=== PATIENT | female | born 1965 | race Caucasian/White ===

== ENCOUNTER 2017-09-08 12:03 | Emergency (ER) | payer MEDICARE ==
[2017-09-08] MEDS ORDERED: Aspirin 81 MG Tab.Chew PO ONE (12:19)
[2017-09-08] MEDS ORDERED: Ketorolac 30 MG/ML SDV IM ONE (12:25)
--- NOTE | 2017-09-08 12:25 | EDM.PDOC ---
ED HPI GENERAL MEDICAL PROBLEM - General Chief Complaint: Chest Pain Stated Complaint: [id number] CHEST PAIN Time Seen by Provider: 09/08/17 12:20 Source of Information: Reports: Patient History Limitations: Reports: No Limitations - History of Present Illness INITIAL COMMENTS - FREE TEXT/NARRATIVE: Patient comes emergency department today with complaints of sharp shooting stabbing intermittent left-sided chest pain that started this morning. She did not wake with this pain. The pain on the left side of her chest is around her breast and under her armpit gets worse with deep breath cough movement or palpation. She has not had a cough over the past couple of days. No congestion. No wheezing. She does smoke anywhere from a half to one pack of cigarettes a day. She has not had any shortness of breath or diaphoresis. No nausea no vomiting. No abdominal pain. No weakness dizziness lightheadedness. No palpitations. No fever no chills. She has not tried anything for the pain. Right Chest Pain Score (Numeric/FACES): 9 - Related Data Allergies Allergy/AdvReac Type Severity Reaction Status Date / Time No Known Allergies Allergy Verified 09/08/17 12:10 Home Meds: Home Meds ARIPiprazole [Aripiprazole] 5 mg PO DAILY 09/08/17 [History] [place] Carbonate 300 mg PO DAILY 09/08/17 [History] QUEtiapine Fumarate [Quetiapine Fumarate] 1,500 mg PO DAILY 09/08/17 [History] Zolpidem [Ambien] 5 mg PO DAILY 09/08/17 [History] traMADol HCl [Tramadol HCl] 50 mg PO BID 09/08/17 [History] Past Medical History Psychiatric History: Reports: Other (See Below) Other Psychiatric History: insomnia Social & Family History - Tobacco Use Smoking Status *Q: Current Every Day Smoker Years of Tobacco use: 20 Packs/Tins Daily: 0.5 - Caffeine Use Caffeine Use: Reports: Coffee - Recreational Drug Use Recreational Drug Use: No ED ROS GENERAL - Review of Systems Review Of Systems: See Below (ROS is difficult to obtain as the patient answers the questions with responses even since she was a child.) ED EXAM, GENERAL - Physical Exam Exam: See Below Exam Limited By: No Limitations General Appearance: Alert, WD/WN, No Apparent Distress Nose: Normal Inspection Throat/Mouth: Normal Inspection, Normal Lips Head: Atraumatic, Normocephalic Neck: Normal Inspection, Supple, Non-Tender Respiratory/Chest: No Respiratory Distress, No Accessory Muscle Use, Crackles ( Fine inspiratory bibasilar crackles without wheezing or rhonchi. ). No: Chest Non-Tender (Chest to the left anterior chest without bruising swelling ecchymosis. ) Cardiovascular: Normal Peripheral Pulses, Regular Rate, Rhythm, No Edema, No JVD GI/Abdominal: Normal Bowel Sounds, Soft, Non-Tender (Female) Exam: Deferred Rectal (Female) Exam: Deferred Back Exam: Normal Inspection, Full Range of Motion Extremities: Normal Inspection, Normal Range of Motion, Normal Capillary Refill Neurological: Alert, Oriented, CN II-XII Intact, Normal Reflexes Psychiatric: Normal Affect, Normal Mood Skin Exam: Warm, Dry, Intact, Normal Color, No Rash Lymphatic: No Adenopathy EKG INTERPRETATION EKG Date: 09/08/17 Time: 12:11 Rhythm: NSR Rate (Beats/Min): 83 [place]: Normal P-Wave: Present QRS: Other (incomplete RBBB) ST-T: Normal QT: Normal Course - Vital Signs Last Recorded V/S: Last Vital Signs Temp 36.7 C 09/08/17 12:16 Pulse 77 09/08/17 13:10 Resp 18 09/08/17 13:10 BP 122/84 09/08/17 13:10 Pulse Ox 99 09/08/17 13:10 - Orders/Labs/Meds Orders: Active Orders 24 hr Category Date Time Status EKG Documentation Completion [RC] STAT Care 09/08/17 12:18 Active Labs: Laboratory Tests 09/08/17 09/08/17 09/08/17 Range/Units 12:27 12:27 12:27 WBC 7.2 (5.0-10.0) 10^3/uL RBC 3.76 L (4.2-5.4) 10^6/uL Hgb 11.4 L (12.0-16.0) g/dL Hct 34.9 L (37.0-47.0) % MCV 92.8 (80-100) fL MCH 30.3 (27.0-34.0) pg MCHC 32.7 L (33.0-35.0) g/dL Plt Count 381 (150-450) 10^3/uL Neut % (Auto) 73.3 (42.2-75.2) % Lymph % (Auto) 17.7 L (20.5-50.1) % [place] % (Auto) 5.8 (2-8) % Eos % (Auto) 2.8 (1.0-3.0) % Baso % (Auto) 0.4 (0.0-1.0) % Sodium 136 (135-145) mmol/L Potassium 4.6 (3.6-5.0) mmol/L Chloride 103 (101-111) mmol/L Carbon Dioxide 27.0 (21.0-31.0) mmol/L Anion Gap 10.6 BUN 11 (7-18) mg/dL Creatinine 1.2 (0.6-1.3) mg/dL Est Cr Clr Drug Dosing 44.48 mL/min Estimated GFR (MDRD) 47 BUN/Creatinine Ratio 9.16 Glucose 89 (74-105) mg/dL Calcium 8.9 (8.4-10.2) mg/dl Total Bilirubin 0.4 (0.2-1.0) mg/dL AST 24 (10-42) IU/L ALT 16 (10-60) IU/L Alkaline Phosphatase 67 (42-121) IU/L Troponin I < 0.02 (0.00-0.02) ng/ml Total Protein 6.5 L (6.7-8.2) g/dl Albumin 3.8 (3.2-5.5) g/dl Globulin 2.7 Albumin/Globulin Ratio 1.41 Meds: Medications Discontinued Medications Generic Name Dose Route Start Last Admin Trade Name Jeremy PRN Reason Stop Dose Admin Aspirin 324 mg 09/08/17 12:19 09/08/17 12:27 Aspirin PO 09/08/17 12:20 324 mg ONETIME ONE Administration Ketorolac Tromethamine 30 mg 09/08/17 12:25 09/08/17 12:39 Toradol IM 09/08/17 12:26 30 mg ONETIME ONE Administration Orphenadrine Citrate 60 mg 09/08/17 12:26 09/08/17 12:39 Norflex IM 09/08/17 12:27 60 mg NOW STA Administration - Radiology Interpretation Free Text/Narrative:: Chest x-ray reviewed extemporaneously by myself with no hemopneumothorax infiltrate or consolidation. Minimal flattening of the bilateral diaphragms with extension concerning for COPD disease. Narrow mediastinum. Radiological review to follow. - Re-Assessments/Exams Free Text/Narrative Re-Assessment/Exam: 09/08/17 12:32 Ketorolac 30mg IM Norflex 60mg IM Aspirin 324mg PO chew. 09/08/17 13:15 Her pain her pain has improved after the above therapy. Her laboratory evaluation to include her EKG and chest x-ray is unremarkable. This is really presentation a musculoskeletal type chest wall pain. We will use a course of nonsteroidals for management at home. She does have tramadol plus many other chronic medications at home that she can use for pain as well. Departure - Departure Time of Disposition: 13:15 Disposition: Home, Self-Care 01 Clinical Impression: Left-sided chest wall pain Instructions: Chest Wall Pain, [id number], Nonspecific Chest Pain, Easy-to- Read Forms: ED Department Discharge Additional Instructions: Aleve 2 tablets twice daily for the next 3 days, then as needed. Consider quitting smoking or cutting down. Return to the ED if new or worsening symptoms Recheck primary care provider in the next 4-6 days if not improving sooner if worse. - My Orders Last 24 Hours: My Active Orders 09/08/17 12:18 EKG Documentation Completion [RC] STAT - Assessment/Plan Last 24 Hours: My Active Orders 09/08/17 12:18 EKG Documentation Completion [RC] STAT Assessment:: Chest wall pain. Plan: Aleve 2 tablets twice daily for the next 3 days, then as needed. Consider quitting smoking or cutting down. Return to the ED if new or worsening symptoms Recheck primary care provider in the next 4-6 days if not improving sooner if worse.
[2017-09-08 12:53] LABS: ANION GAP 10.6
--- NOTE | 2017-09-11 07:47 | EKG ---
09/08/2017- ASHLEE VASQUEZ R - EKG per my reading, shows sinus rhythm at the rate of 83. MODL /[id number]
== END 2017-09-08 13:29 | disposition home or self-care (01) ==
LOC: DL.ED 12:03
DX: R07.89 Other chest pain (principal); F17.210 Nicotine dependence, cigarettes, uncomplicated; Z79.899 Other long term (current) drug therapy
CPT/HCPCS: 36415; 71046; 80053; 84484; 85025; 93005; 93010; 96372; 99285; A9270; J1885; J2360

== ENCOUNTER 2022-11-13 10:50 | Emergency (ER) | payer MEDICARE, SELFPAY ==
[2022-11-13] MEDS ORDERED: predniSONE 20 MG Tab PO ONE (12:27)
== END 2022-11-13 12:46 | disposition home or self-care (01) ==
LOC: DL.ED 10:50
DX: M54.42 Lumbago with sciatica, left side (principal); F17.210 Nicotine dependence, cigarettes, uncomplicated; W18.30XA Fall on same level, unspecified, initial encounter; Y93.01 Activity, walking, marching and hiking
CPT/HCPCS: 99283; J7512

== ENCOUNTER 2024-05-24 20:56 | Emergency (ER) | payer MEDICARE ==
[2024-05-24] MEDS: Ziprasidone Mesylate 20 MG Vial IM ONE (21:01)
[2024-05-24 21:22] LABS: APPEARANCE,URINE CLEAR (CLEAR); BILIRUBIN,URINE NEGATIVE (NEGATIVE); COLOR,URINE YELLOW (YELLOW); GLUCOSE,URINE NEGATIVE (NEGATIVE); KETONES,URINE NEGATIVE (NEGATIVE); LEUKOCYTE ESTERASE,URINE NEGATIVE (NEGATIVE); NITRITE,URINE NEGATIVE (NEGATIVE); OCCULT BLOOD,URINE NEGATIVE (NEGATIVE); PH,URINE 7.5 (5.0-9.0); PROTEIN,URINE NEGATIVE (NEGATIVE); UROBILINOGEN,URINE 0.2 mg/dL (0.2-1.0)
[2024-05-24 21:26] LABS: AMPHETAMINES,URINE NEGATIVE (NEGATIVE); BARBITURATES,URINE NEGATIVE (NEGATIVE); BENZODIAZEPINE,URINE POSITIVE (NEGATIVE); MDMA (ECSTASY), URINE NEGATIVE (NEGATIVE); METHADONE,URINE NEGATIVE (NEGATIVE); METHAMPHETAMINES,URINE NEGATIVE (NEGATIVE); OPIATES,URINE NEGATIVE (NEGATIVE); OXYCODONE,URINE NEGATIVE (NEGATIVE); PHENCYCLIDINE,URINE NEGATIVE (NEGATIVE); TCA,URINE NEGATIVE (NEGATIVE)
[2024-05-24 21:41] LABS: BASOPHILS PERCENT AUTO 0.3 % (0.0-1.0); EOSINOPHILS PERCENT AUTO 0.9 % (1.0-3.0); HEMATOCRIT 32.7 % (37.0-47.0); HEMOGLOBIN 10.8 g/dL (12.0-16.0); LYMPHOCYTES PERCENT AUTO 18.2 % (20.5-50.1); MEAN CORPUSCULAR HEMOGLOBIN 31.6 pg (27.0-34.0); MEAN CORPUSCULAR VOLUME 95.6 fL (80-100); MONOCYTES PERCENT AUTO 6.1 % (2-8); NEUTROPHILS PERCENT AUTO 74.5 % (42.2-75.2); PLATELET COUNT,PLT 320 10^3/uL (150-450); RED BLOOD CELL COUNT 3.42 10^6/uL (4.2-5.4); WHITE BLOOD CELL COUNT,WBC 9.3 10^3/uL (5.0-10.0)
[2024-05-24 22:36] LABS: A/G RATIO 1.2; ACETAMINOPHEN 4 ug/mL (10-30 (Therapeutic)); ALANINE AMINOTRANSFERASE,ALT 31 U/L (14-59); ALBUMIN 3.5 g/dL (3.4-5.0); ALKALINE PHOSPHATASE 98 U/L (46-116); ASPARTATE AMNIOTRANSFERASE,AST 33 U/L (15-37); BILIRUBIN TOTAL 0.3 mg/dL (0.2-1.0); BLOOD UREA NITROGEN,BUN 13 mg/dL (7-18); BUN/CREATININE RATIO 12.6 (No establ ref range); CALCIUM 9.6 mg/dL (8.5-10.1); CARBON DIOXIDE,CO2 28 mmol/L (21-32); CHLORIDE,CL 109 mmol/L (98-107); CREATININE 1.03 mg/dL (0.55-1.02); GLUCOSE RANDOM 117 mg/dL (70-99); PROTEIN TOTAL,TP 6.4 g/dL (6.4-8.2); TSH ULTRASENSITIVE 2.36 uIU/mL (0.36-3.74)
[2024-05-24 22:39] LABS: ESTIMATED GFR 63 mL/min (>=60); ETHANOL BLOOD MEDICAL < 3 mg/dL (0); SODIUM,NA 146 mmol/L (136-145)
[2024-05-25] MEDS: LORazepam 2 MG/ML SDV IM ONE (00:40)
[2024-05-25] MEDS: LORazepam 2 MG/ML SDV ONE (02:00)
[2024-05-25] MEDS: Acetaminophen 500 MG Tab PO ONE (04:10)
== END 2024-05-25 08:08 ==
LOC: DL.ED 20:56
DX: R46.89 Other symptoms and signs involving appearance and behavior (principal); Z79.899 Other long term (current) drug therapy
CPT/HCPCS: 36415; 80053; 80143; 80178; 80179; 80305; 80307; 81003; 84443; 85025; 87428; 96372; 99285; A9270; J2060; J3486

== ENCOUNTER 2024-06-04 13:53 | Emergency (ER) | payer MEDICARE ==
[2024-06-04 14:23] LABS: EOSINOPHILS PERCENT AUTO 0.9 % (1.0-3.0); HEMATOCRIT 37.2 % (37.0-47.0); HEMOGLOBIN 12.1 g/dL (12.0-16.0); LYMPHOCYTES PERCENT AUTO 25.8 % (20.5-50.1); MEAN CORPUSCULAR HEMOGLOBIN 31.4 pg (27.0-34.0); MEAN CORPUSCULAR HGB CONC 32.5 g/dL (33.0-35.0); MEAN CORPUSCULAR VOLUME 96.6 fL (80-100); MONOCYTES PERCENT AUTO 8.5 % (2-8); NEUTROPHILS PERCENT AUTO 63.8 % (42.2-75.2); PLATELET COUNT,PLT 465 10^3/uL (150-450); RED BLOOD CELL COUNT 3.85 10^6/uL (4.2-5.4); WHITE BLOOD CELL COUNT,WBC 10.5 10^3/uL (5.0-10.0)
[2024-06-04 14:38] LABS: APPEARANCE,URINE CLEAR (CLEAR); BILIRUBIN,URINE NEGATIVE (NEGATIVE); COLOR,URINE YELLOW (YELLOW); GLUCOSE,URINE NEGATIVE (NEGATIVE); KETONES,URINE NEGATIVE (NEGATIVE); LEUKOCYTE ESTERASE,URINE NEGATIVE (NEGATIVE); NITRITE,URINE NEGATIVE (NEGATIVE); OCCULT BLOOD,URINE NEGATIVE (NEGATIVE); PROTEIN,URINE NEGATIVE (NEGATIVE); UROBILINOGEN,URINE 0.2 mg/dL (0.2-1.0)
[2024-06-04 14:42] LABS: AMPHETAMINES,URINE NEGATIVE (NEGATIVE); BARBITURATES,URINE NEGATIVE (NEGATIVE); BENZODIAZEPINE,URINE POSITIVE (NEGATIVE); MDMA (ECSTASY), URINE NEGATIVE (NEGATIVE); METHADONE,URINE NEGATIVE (NEGATIVE); METHAMPHETAMINES,URINE NEGATIVE (NEGATIVE); OPIATES,URINE NEGATIVE (NEGATIVE); OXYCODONE,URINE NEGATIVE (NEGATIVE); PHENCYCLIDINE,URINE NEGATIVE (NEGATIVE); TCA,URINE NEGATIVE (NEGATIVE)
[2024-06-04 14:50] LABS: ACETAMINOPHEN 4 ug/mL (10-30 (Therapeutic)); ANION GAP 11.4 mEq/L (7-13); BLOOD UREA NITROGEN,BUN 15 mg/dL (7-18); CALCIUM 9.3 mg/dL (8.5-10.1); CARBON DIOXIDE,CO2 29 mmol/L (21-32); CHLORIDE,CL 107 mmol/L (98-107); CREATININE 0.91 mg/dL (0.55-1.02); EST CRCL DRUG DOSING (CG) 54.14 mL/min; GLUCOSE RANDOM 122 mg/dL (70-99); MAGNESIUM 2.2 mg/dL (1.8-2.4); POTASSIUM,K 4.4 mmol/L (3.5-5.1); SODIUM,NA 143 mmol/L (136-145); TSH ULTRASENSITIVE 2.05 uIU/mL (0.36-3.74)
[2024-06-04 14:51] LABS: ESTIMATED GFR 73 mL/min (>=60); ETHANOL BLOOD MEDICAL < 3 mg/dL (0)
== END 2024-06-04 16:20 ==
LOC: DL.ED 13:53
DX: F20.3 Undifferentiated schizophrenia (principal); Z79.899 Other long term (current) drug therapy
CPT/HCPCS: 36415; 80048; 80143; 80179; 80305-QW; 80307; 81003; 83735; 84443; 85025; 99285